=== PATIENT | female | born 1965 | race Asian ===

== ENCOUNTER 2016-10-09 23:06 | Emergency (ER) | payer MEDICARE ==
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
[2016-10-10 09:47] LABS: Basophils % (Auto) 0.4 % (0.0-1.8); Eosinophils % (Auto) 0.4 % (0.0-4.3); Hematocrit 45.5 % (30.3-42.9); Hemoglobin 14.4 gm/dl (10.1-14.3); Mean Corpuscular HGB Conc 32 % (30-34); Mean Corpuscular Hemoglobin 29 pg (28-32); Mean Corpuscular Volume 93 fl (79-97); Platelet Count 276 K/mm3 (140-440); Red Blood Count 4.92 M/mm3 (3.65-5.03); Red Cell Distribution Width 13.3 % (13.2-15.2); White Blood Count 10.9 K/mm3 (4.5-11.0)
[2016-10-10 10:02] LABS: Urine Drugs of Abuse Note Disclamer
[2016-10-10 10:09] LABS: Alanine Aminotransferase 12 units/L (7-56); Albumin 4.7 g/dL (3.9-5); Albumin/Globulin Ratio 1.2 %; Alkaline Phosphatase 63 units/L (35-129); Anion Gap 20 mmol/L; BUN/Creatinine Ratio 13.75; Bilirubin,Total 0.2 mg/dL (0.1-1.2); Blood Urea Nitrogen 11 mg/dL (7-17); Calcium 9.5 mg/dL (8.4-10.2); Carbon Dioxide 22 mmol/L (22-30); Chloride 95.1 mmol/L (98-107); Glucose 215 mg/dL (65-100); Potassium 4.2 mmol/L (3.6-5.0); Sodium 133 mmol/L (137-145); Total Protein 8.7 g/dL (6.3-8.2)
[2016-10-10 10:10] LABS: Lithium 0.2 mmol/L (0.0-1.2); Valproate 40.8 ug/mL (50-100)
[2016-10-10 10:13] LABS: Bacteria,Urine 1+ /HPF (Negative); Bilirubin,Urine NEG (Negative); Blood,Urine NEG (Negative); Ketones,Urine TR mg/dL (Negative); Leukocyte Esterase,Urine LG (Negative); Mucus,Urine FEW /HPF; Nitrite,Urine NEG (Negative); Urobilinogen,Urine < 2.0 mg/dL (<2.0)
[2016-10-10] MEDS ORDERED: INSULIN ASPART PROT SQ SCH (14:00)
[2016-10-10] MEDS ORDERED: ASPART SQ SCH (14:00)
[2016-10-10] MEDS ORDERED: NOVOLOG SUB-Q SCH (16:30)
[2016-10-10 19:06] VITALS: BP 135/88
[2016-10-10] MEDS ORDERED: COGENTIN PO SCH (22:00)
[2016-10-10] MEDS ORDERED: LEVEMIR SUB-Q SCH (22:00)
[2016-10-11] MEDS ORDERED: INSULIN DETEMIR 35 UNIT SQ SCH (10:00)
[2016-10-11] MEDS ORDERED: ZESTRIL PO SCH (10:00)
== END 2016-10-10 19:15 ==
LOC: EEVIPCON 23:06 → ED 23:06
DX: F22 Delusional disorders (principal); F20.9 Schizophrenia, unspecified
CPT/HCPCS: 36415; 80053; 80164; 80178; 80307; 81001; 82962; 85025; 96372; 99285; G0480; 80320; J1815; J1818